=== PATIENT | female | born 1965 | race Caucasian/White ===

== ENCOUNTER 2018-05-22 22:19 | Emergency (ER) | payer BC ==
[~2018-05-22] VITALS: Ht 170.2 cm; Wt 81.6 kg
[2018-05-22 22:22] VITALS: Ht 170.2 cm; Wt 81.6 kg
[2018-05-22] MEDS ORDERED: LIDOCAINE/MYLANTA 40 ML BTL PO STA (23:00)
[2018-05-22] MEDS ORDERED: FAMOTIDINE 20 MG TAB PO STA (23:00)
[2018-05-22] MEDS ORDERED: SOD CHLORIDE 0.9% 1,000 ML IV STA (23:00)
[2018-05-22] MEDS ORDERED: DICYCLOMINE 10 MG CAP PO ONE (23:00)
[2018-05-23] MEDS ORDERED: FAMO-96 PO (00:17)
[2018-05-23] MEDS ORDERED: DICY10CA40 PO (00:17)
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
[2018-05-23 00:31] VITALS: BP 142/84; PULSE 69; RESP 20
== END 2018-05-23 00:31 | disposition home or self-care (01) ==
LOC: E/R 22:19
DX: R10.84 Generalized abdominal pain (principal)
CPT/HCPCS: 36415; 80053; 83690; 85025; 93005; 99284; J7030